=== PATIENT | male | born 1980 | race Caucasian/White ===

== ENCOUNTER 2022-04-15 16:53 | Outpatient (RCR) | payer BC, SELFPAY ==
--- NOTE | 2022-04-15 17:56 | PTOPEVAL1 ---
Assessment and note entered by Jennifer Dickinson DPT Evaluation Information Assessment Status Evaluation Diagnosis Acute R low back pain Onset 01/31/2022 Subjective Information Pt reports that when he was at work in early January, he was lifting a heavy object overhead. He felt immediately afterwards some pain, but reports that pain has gradually worsened over time since then. He was working through it, but has since taken a break from work and is feeling better, just more stiff. Pt reports most difficulty with walking, bending over, and lifting activities. He reports most relief when sitting or reclining feet. Pt reports that sleep was affected as felt very achy. He reports that he saw a chiropractor who popped his ribs back into place. Pt reports some numbness and tingling in his R>L leg when working a lot. Pt denies leg weakness. Pt wants to be able to get rid of pain to return to work and household activities without pain. Pt does not have a follow-up scheduled with his MD. Reported Pain Level Pain Score 1: Self Report Assessment PT Clinical Summary Pt presents to PT with R sided low back pain and demonstrates decreased mobility, lumbar/glute muscular hypertonicity, decreased hip strength, and altered gait/posture. His current deficits make it more challenging for him to walk, stand, and lift as needed for his work and for household and recreational activities. He was provided with an HEP focused on improving lumbar mobility and muscular hypertonicity/guarding and core stability within his tolerance. He will benefit from skilled PT to facilitate symptom relief, improve the aforementioned impairments, and return to functional and recreational activities. Plan of Care Interventions Electrical Stimulation,Gait Training,Hot Pack/Cold Pack,Manual Therapy,Mechanical Traction,Neuro Re- education,Patient/Caregiver Educati,Therapeutic Activities,Therapeutic Exercise PT Services Indicated Yes Treatment Frequency and 2x week for 12 visits Duration These treatments will address the objective and functional deficits as defined above. The patient will be advanced safely and appropriately in order for the patient to progress towards his/her prior level of function. Additional exercises will be introduced and as well as a comprehensive home exercise program upon discharge, if needed, ?to ensure carryover of functional gains achieved in the clinic. This
== END 2022-05-08 23:59 | disposition home or self-care (01) ==
LOC: CHSPT 16:53
PROVIDERS: Visit Provider Family Medicine
DX: M54.50 Low back pain, unspecified (principal)
CPT/HCPCS: 97014; 97110; 97140; 97161; G0283